=== PATIENT | male | born 1980 | race Caucasian/White ===

== ENCOUNTER 2017-07-21 10:17 | Emergency (ER) | payer OTHER ==
[~2017-07-21] VITALS: Ht 177.8 cm; Wt 83.9 kg
--- NOTE | 2017-07-21 10:27 | NUR ---
BIB SELF C/O CHEST PAIN/PALPITATIONS SINCE YESTERDAY. PATIENT STATING HE HAS A HISTORY OF A-FIB AND ABLATIONS. PATIENT IS A/OX 4. BREATHING EVEN AND UNLABORED. NO SOB. VITALS STABLE. SAFETY AND COMFORT MEASURES IN PLACE. AWAITING MD ORDERS.
--- NOTE | 2017-07-21 10:47 | NUR ---
NEW IV STARTED ON LAC, 20 G. BLOOD DRAWN AND SENT TO LAB.
[2017-07-21 10:49] LABS: BASOPHILS # (AUTO) 0.1 /CMM (0.0-0.2); EOSINOPHILS # (AUTO) 0.1 /CMM (0.0-0.7); EOSINOPHILS % (AUTO) 1.1 % (0.0-6.0); LYMPHOCYTES # (AUTO) 1.6 /CMM (0.8-4.8); MEAN CORPUSCULAR HGB CONC 35 g/dl (31.0-36.0); MONOCYTES # (AUTO) 0.5 /CMM (0.1-1.30); MONOCYTES % (AUTO) 6.6 % (2.0-12.0); WHITE BLOOD COUNT (AUTO) 8.3 K/uL (4.3-11.0)
[2017-07-21 10:51] LABS: BASOPHILS % (AUTO) 0.7 % (0.0-2.0); HEMATOCRIT 53 % (39-51); HEMOGLOBIN 18.3 g/dL (13.5-17.5); LYMPHOCYTES % (AUTO) 18.7 % (20.0-44.0); MEAN CORPUSCULAR HEMOGLOBIN 31 PG (26.0-33.0); MEAN CORPUSCULAR VOLUME 90 fL (80-96); NEUTROPHILS % (AUTO) 72.9 % (43.0-81.0); PLATELET COUNT (AUTO) 268 /CMM (150-450); RED BLOOD CELL COUNT(AUTO) 5.86 MIL/uL (4.5-6.0)
[2017-07-21 10:58] LABS: CALCIUM, SERUM 9.3 mg/dL (8.5-10.1); CREATININE 1.2 mg/dL (0.6-1.3); POTASSIUM 4.6 mmol/L (3.5-5.1)
[2017-07-21 11:02] LABS: INR 1.05 (0.85-1.15)
[2017-07-21 11:07] LABS: TROPONIN I 0.023 ng/mL (0.00-0.056)
--- NOTE | 2017-07-21 11:38 | NUR ---
IV removed. Catheter intact and site benign. Pressure and 4x4 applied to site. No bleeding noted. Patient discharged to home in stable condition. Written and verbal after care instructions given. Patient verbalizes understanding of instruction.
[2017-07-21 11:39] VITALS: BP 162/91
== END 2017-07-21 11:45 | disposition home or self-care (01) ==
LOC: ER 10:20
DX: I45.6 Pre-excitation syndrome (principal); I48.91 Unspecified atrial fibrillation
CPT/HCPCS: 36415; 71045; 80048; 84484; 85025; 85730; 93005 ×2; 99285; A4606; Z7610

== ENCOUNTER 2017-08-05 23:38 | Emergency (ER) | payer OTHER ==
[~2017-08-05] VITALS: Ht 177.8 cm; Wt 81.6 kg
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
[2017-08-06] MEDS ORDERED: ONDANSETRON 4 MG TAB.RAPDIS PO ONE (00:30)
[2017-08-06] MEDS ORDERED: oxyCODONE/APAP (5/325 MG) 1 UDTAB TABLET PO ONE (00:30)
[2017-08-06] MEDS ORDERED: ONDANSETRON 4 MG TAB.RAPDIS ONE (00:38)
[2017-08-06] MEDS ORDERED: HYDROCODONE/APAP 5/325MG 1 EACH TABLET ONE (00:38)
--- NOTE | 2017-08-06 01:10 | NUR ---
PT TO CT VIA W/C. VSS.
--- NOTE | 2017-08-06 02:08 | NUR ---
DR. COTTON PAGED FOR ORTHO CONSULT REQUESTED BY DR. MIR.
--- NOTE | 2017-08-06 02:35 | NUR ---
PT AWAKE AND ALERT, VSS.
--- NOTE | 2017-08-06 02:40 | NUR ---
PAGED DR. COTTON AGAIN. 2ND CALL.
--- NOTE | 2017-08-06 03:25 | NUR ---
PAGED ORTHOPEDICS 3RD CALL.
--- NOTE | 2017-08-06 03:55 | NUR ---
EMT AT BEDSIDE FOR SPLINT.
--- NOTE | 2017-08-06 04:20 | NUR ---
Patient discharged to home in stable condition. Written and verbal after care instructions given, instructed not to drive. Patient verbalizes understanding of instruction. Patient ambulatory with a steady gait.
[2017-08-06 04:21] VITALS: BP 134/71
== END 2017-08-06 04:23 | disposition home or self-care (01) ==
LOC: ER 23:40
DX: S52.121A Displaced fracture of head of right radius, initial encounter for closed fracture (principal); S52.131A Displaced fracture of neck of right radius, initial encounter for closed fracture; W18.39XA Other fall on same level, initial encounter; Y93.51 Activity, roller skating (inline) and skateboarding; Y92.89 Other specified places as the place of occurrence of the external cause; Y99.8 Other external cause status
CPT/HCPCS: 29105; 73060; 73090; 73130; 73200; 99284; A4606; Q0162; Z7610